=== PATIENT | male | born 1960 | race Caucasian/White ===

== ENCOUNTER 2019-05-24 15:27 | Inpatient (IN) | payer MEDICARE, SELFPAY | END 2019-05-28 15:15 | DRG 948 | PROVIDERS: Admitting Provider Internal Medicine; Emergency Provider General Practice; Visit Provider Family Medicine | DX: R41.82 Altered mental status, unspecified (principal); I67.850 Cerebral autosomal dominant arteriopathy with subcortical infarcts and leukoencephalopathy; Q21.1 Atrial septal defect; N17.9 Acute kidney failure, unspecified; Z23 Encounter for immunization; I25.10 Atherosclerotic heart disease of native coronary artery without angina pectoris; Z95.5 Presence of coronary angioplasty implant and graft; I10 Essential (primary) hypertension; M10.9 Gout, unspecified; I69.341 Monoplegia of lower limb following cerebral infarction affecting right dominant side; I69.334 Monoplegia of upper limb following cerebral infarction affecting left non-dominant side; I69.398 Other sequelae of cerebral infarction; R26.81 Unsteadiness on feet; E66.9 Obesity, unspecified; E86.0 Dehydration; Z91.14 Patient's other noncompliance with medication regimen; Z91.19 Patient's noncompliance with other medical treatment and regimen; W19.XXXA Unspecified fall, initial encounter; Z91.81 History of falling; S92.001A Unspecified fracture of right calcaneus, initial encounter for closed fracture; M19.071 Primary osteoarthritis, right ankle and foot; R07.81 Pleurodynia; F01.50 Vascular dementia, unspecified severity, without behavioral disturbance, psychotic disturbance, mood disturbance, and anxiety | CPT/HCPCS: 36415; 36600; 70450; 71046; 72125; 72131; 73610; 73630; 74176; 80048; 80053; 80061; 80307; 81001; 82140; 82375; 82550; 82607; 82746; 82805; 83050; 83605; 83735; 83918; 84443; 84484; 85025; 85610; 85730; 87040; 90471; 90686; 92507; 92523; 93005; 93306; 94762; 95816; 96361; 96365; 96372; 96375; 96376; 97110; 97161; 97165; 97530; 97535; 99285; A9270; G0008; G0378; J0131; J3420; J7030; J7120; L2116 ==